=== PATIENT | male | born 1990 | race Caucasian/White ===

== ENCOUNTER 2024-12-28 13:49 | Emergency (ER) | payer OTHER, SELFPAY ==
--- NOTE | ~2024-12-28 | XR_ITS ---
EXAMINATION: XR ankle LT min 3V, 12/28/2024 14:12 UPHOLSTERER LIMOUSINE AND HEARSE HISTORY: Fell off roof COMPARISON: No comparisons available. Findings: There is a comminuted fracture of the calcaneus with fracture lines extending posteriorly superiorly and inferiorly. No significant degenerative changes. Soft tissues unremarkable. Impression: Comminuted calcaneal fracture Reviewed, dictated and finalized at location P. LSTERER LIMOUSINE AND HEARSE Impression: Comminuted calcaneal fracture
--- NOTE | ~2024-12-28 | XR_ITS ---
EXAMINATION: XR heel LT min 2V, 12/28/2024 16:05 WAISTLINE JOINER OVERLOCK HISTORY: fall off ladder COMPARISON: No comparisons available. Findings: Comminuted fracture of the calcaneus with fracture lines extending superiorly posteriorly and inferiorly. No significant degenerative changes. Soft tissue swelling. Impression: Comminuted calcaneal fracture Reviewed, dictated and finalized at location P. TLINE JOINER OVERLOCK Impression: Comminuted calcaneal fracture
--- NOTE | ~2024-12-28 | CT_ITS ---
EXAMINATION: CT ankle LT wo con COMPARISON: None HISTORY: fall TECHNIQUE: Axial images were obtained without IV contrast. Sagittal, coronal reconstruction images were obtained from the axial views. CT scan performed using dose optimization techniques including the following automated exposure control; adjustment of mA and/or kV; use of iterative reconstruction technique. Automatic exposure control was used to reduce radiation dose. Permanent radiation dose record is archived to PACS. FINDINGS: Soft tissue swelling is noted with scattered foci of intramuscular hemorrhage. There is a comminuted fracture of the calcaneus with fracture lines extending posteriorly, superiorly into the talocalcaneal joint anteriorly into the anterior process and inferiorly into the calcaneal cortex. There is a small avulsion fracture noted of the proximal cuboid. No additional fracture or dislocation is identified. IMPRESSION: Comminuted calcaneal fracture detailed above. Small avulsion fracture of the cuboid. Reviewed, dictated and finalized at location P. CE SYSTEM ANALYST IMPRESSION: Comminuted calcaneal fracture detailed above. Small avulsion fractu re of the cuboid.
[2024-12-28 13:52] VITALS: BP 139/101; PULSE 122; RESP 20; TEMP 36.8; O2SAT 100
[2024-12-28] MEDS: HYDROcodone/acetaminophen (*CRX) 5-325 MG TABLET 1 TAB PO (15:05)
--- NOTE | 2024-12-28 15:49 | ED_ITS ---
HPI - General Adult General Chief complaint: Extremity Injury, Lower <KARSTEN Marcelino - Last Filed: 12/29/24 02:34> Stated complaint: fell off roof yesterday <KARSTEN Marcelino - Last Filed: 12/29/24 02:34> Time Seen by Provider: 12/28/24 14:07 <KARSTEN Marcelino - Last Filed: 12/29/24 02:34> History of Present Illness HPI narrative: 34-year-old male presenting with a left ankle injury after falling two stories from a roof yesterday. patient reports he was able to limp to his car afterwards. He could not sleep throughout the night as the pain was too severe. He denies any other injuries. Denies hitting his head, loss of consciousness, numbness /tingling. Left ankle and foot are severely swollen. Neurovascular intact. <KARSTEN Marcelino - Last Filed: 12/29/24 02:34> Related Data Allergies/adverse reactions: Allergies Allergy/AdvReac Type Severity Reaction Status Date / Time No Known Allergies Allergy Mild Verified 12/28/24 13:57 <KARSTEN Marcelino - Last Filed: 12/29/24 02:34> Review of Systems Review of Systems: All systems reviewed & are unremarkable except as noted in HPI and below <KARSTEN Marcelino - Last Filed: 12/29/24 02:34> Exam Narrative: GENERAL: Well-appearing, well-nourished, and in no acute distress. HEAD: Normocephalic, atraumatic. EYES: PERRLA and EOMI. ENT: Nares clear, no rhinorrhea or epistaxis. Mucous membranes moist. Oropharynx without tonsillar hypertrophy exudate or other lesions. Bilateral TMs pearly frias non-bulging NECK: Supple. No adenopathy or masses. No carotid bruits or JVD CHEST: Clear to auscultation. No respiratory distress. No wheezes rales or rhonchi HEART: Tachycardic. Regular rhythm. No murmur heard. Normal peripheral pulses. ABDOMEN: Soft, nontender, nondistended, normal active bowel sounds. EXTREMITIES: Significant diffuse left ankle and foot swelling. No ecchymosis. Neurovascular intact. ROM and strength limited due to pain. SKIN: Warm, dry, no rash. NEURO: No focal deficits. Alert and oriented x3. PSYCH: Normal mood and affect <KARSTEN Marcelino - Last Filed: 12/29/24 02:34> Course Vital Signs Vital signs: Vital Signs Temperature 98.2 F 12/28/24 13:52 Pulse Rate 122 H 12/28/24 13:52 Respiratory Rate 20 12/28/24 13:52 Blood Pressure 139/101 H 12/28/24 13:52 Pulse Oximetry 100 12/28/24 13:52 Oxygen Delivery Room Air 12/28/24 13:52 Temperature 98.2 F 12/28/24 13:52 Pulse Rate 122 H 12/28/24 13:52 Respiratory Rate 20 12/28/24 13:52 Blood Pressure 139/101 H 12/28/24 13:52 Pulse Oximetry 100 12/28/24 13:52 Oxygen Delivery Room Air 12/28/24 13:52 <KARSTEN Marcelino - Last Filed: 12/29/24 02:34> Vital Signs Temperature 98.2 F 12/28/24 13:52 Pulse Rate 122 H 12/28/24 13:52 Respiratory Rate 20 12/28/24 13:52 Blood Pressure 139/101 H 12/28/24 13:52 Pulse Oximetry 100 12/28/24 13:52 Oxygen Delivery Room Air 12/28/24 13:52 Temperature 98.2 F 12/28/24 13:52 Pulse Rate 122 H 12/28/24 13:52 Respiratory Rate 20 12/28/24 13:52 Blood Pressure 139/101 H 12/28/24 13:52 Pulse Oximetry 100 12/28/24 13:52 Oxygen Delivery Room Air 12/28/24 13:52 <Sarika Brown MD - Last Filed: 12/28/24 20:18> Medical Decision Making MDM Narrative Medical decision making narrative: 34-year-old male presenting with a left ankle injury after falling two stories from a roof yesterday. patient reports he was able to limp to his car a fterwards. He could not sleep throughout the night as the pain was too severe. He denies any other injuries. Denies hitting his head, loss of consciousness, numbness /tingling. Left ankle and foot are severely swollen. Neurovascular intact. Upon my initial exam patient is anxious and reports severe pain. Exam shows significant diffuse left ankle and foot swelling. No ecchymosis. Neurovascular intact. ROM and strength limited due to pain. Ankle XR demonstrates comminuted calcaneal fracture. Administered L[place]wood which gave mild relief. Spoke with Dr. Garcia with ortho who advised CT ankle and calcaneal XR. CT ankle demonstrated comminuted calcaneal fracture and a small avulsion fracture of the cuboid. Calcaneal XR demonstrated the same findings. After discussing these results, Dr. Garcia was comfortable with patient discharge in posterior splint and close follow-up outpatient in his office. Patient's pain increased after imaging, administered oxycodone. Patient reported better relief. Splint was placed by the emergency department autocad technician under my supervision. The patient was neurovascularly intact both pre-and post-procedure. Patient discharged home with Larchwood prescription for pain control. All questions were answered to the patient's satisfaction. Patient comfortable with discharge home for outpatient care and follow-up. Given reasons to return. A I was asked to write a prescription of L[place]wood because the nurse practitioner credentials are not sufficient to do that. I did not see the patient I was told that the patient have calcaneal fracture and was accepted for outpatient follow-up by the orthopedic. <KARSTEN Marcelino - Last Filed: 12/29/24 02:34> 34-year-old male presenting with a left ankle injury after falling two stories from a roof yesterday. patient reports he was able to limp to his car afterwards. He could not sleep throughout the night as the pain was too severe. He denies any other injuries. Denies hitting his head, loss of consciousness, numbness /tingling. Left ankle and foot are severely swollen. Neurovascular intact. Upon my initial exam patient is anxious and reports severe pain. Significant diffuse left ankle and foot swelling. No ecchymosis. Neurovascular intact. ROM and strength limited due to pain. Ankle XR demonstrates comminuted calcaneal fracture. Spoke with Dr. Garcia with ortho who advised CT ankle and calcaneal XR... Splint was placed by the emergency department autocad technician under my supervision. The patient was neurovascularly intact both pre-and post-procedure. A I was asked to write a prescription of [place]wood because the nurse practitioner credentials are not sufficient to do that. I did not see the patient I was told that the patient have calcaneal fracture and was accepted for outpatient follow-up by the orthopedic. <Sarika Brown MD - Last Filed: 12/28/24 20:18> Medical Records Medical records reviewed: Yes I reviewed the external patient's medical records. <KARSTEN Marcelino - Last Filed: 12/29/24 02:34> Vital Signs Vital Signs: Vital Signs Temperature 98.2 F 12/28/24 13:52 Pulse Rate 122 H 12/28/24 13:52 Respiratory Rate 20 12/28/24 13:52 Blood Pressure 139/101 H 12/28/24 13:52 Pulse Oximetry 100 12/28/24 13:52 Oxygen Delivery Room Air 12/28/24 13:52 Temperature 98.2 F 12/28/24 13:52 Pulse Rate 122 H 12/28/24 13:52 Respiratory Rate 20 12/28/24 13:52 Blood Pressure 139/101 H 12/28/24 13:52 Pulse Oximetry 100 12/28/24 13:52 Oxygen Delivery Room Air 12/28/24 13:52 <KARSTEN Marcelino - Last Filed: 12/29/24 02:34> Vital Signs Temperature 98.2 F 12/28/24 13:52 Pulse Rate 122 H 12/28/24 13:52 Respiratory Rate 20 12/28/24 13:52 Blood Pressure 139/101 H 12/28/24 13:52 Pulse Oximetry 100 12/28/24 13:52 Oxygen Delivery Room Air 12/28/24 13:52 Temperature 98.2 F 12/28/24 13:52 Pulse Rate 122 H 12/28/24 13:52 Respiratory Rate 20 12/28/24 13:52 Blood Pressure 139/101 H 12/28/24 13:52 Pulse Oximetry 100 12/28/24 13:52 Oxygen Delivery Room Air 12/28/24 13:52 <Sarika Brown MD - Last Filed: 12/28/24 20:18> Imaging Data Attestation: I personally reviewed and interpreted this imaging study as follows: <KARSTEN Marcelino - Last Filed: 12/29/24 02:34> Radiologist's impression: ITS Impressions Ankle X-Ray 12/28/24 14:20 Impression: Comminuted calcaneal fracture Ankle CT 12/28/24 15:48 IMPRESSION: Comminuted calcaneal fracture detailed above. Small avulsion fracture of the cuboid. Heel X-Ray 12/28/24 16:17 Impression: Comminuted calcaneal fracture <KARSTEN Marcelino Last Filed: 12/29/24 02:34> Discharge Plan Discharge Clinical Impression: Closed fracture of heel bone <KARSTEN Marcelino Last Filed: 12/29/24 02:34> Patient Disposition: Home <KARSTEN Marcelino Last Filed: 12/29/24 02:34> Condition: Stable <KARSTEN Marcelino Last Filed: 12/29/24 02:34> Instructions: Calcaneal Fracture (ED) <KARSTEN Marcelino Last Filed: 12/29/24 02:34> Additional Instructions: Nonweightbearing on the affected foot. Use crutches as instructed. Keep splint on as instructed and do not remove unless instructed by your doctor. Keep the dressing dry and clean. Use a plastic bag when showering. Check for signs of tightness or impaired circulation including increasing pain, numbness, tingling, swelling, or blue toes. go to the ER immediately for any of these signs or symptoms. Take pain medications as directed. Elevate the foot above heart level when resting to reduce swelling. Follow up closely with Dr. Garcia's office with orthopedics. <KARSTEN Marcelino Last Filed: 12/29/24 02:34> Patient Language: Citizen Of [place] <KARSTEN Marcelino Last Filed: 12/29/24 02:34> Prescriptions: New hydrocodone-acetaminophen 5-325 mg tablet 1 tablet PO Q4H Qty: 30 0RF <KARSTEN Marcelino Last Filed: 12/29/24 02:34> Follow-up/Referrals: PHYSICIAN,TAPEMAN [Primary Care Provider, Internal Medicine] Kirit Garcia MD [Physician, Orthopedics] <KARSTEN Marcelino - Last Filed: 12/29/24 02:34>
[2024-12-28] MEDS: oxyCODONE HCL (*CRX) 5 MG TAB IR PO (17:00)
--- NOTE | 2024-12-28 18:09 | PC.NURSE ---
Patient states splint was hurting. RN removed fiberglass and replaced splint. Patient states splint feels better. RN educated pt on crutches and splint care.
== END 2024-12-28 18:13 | disposition home or self-care (01) ==
DX: S92.002A Unspecified fracture of left calcaneus, initial encounter for closed fracture (principal); W13.2XXA Fall from, out of or through roof, initial encounter
CPT/HCPCS: 29515; 73610; 73650; 73700; 96360; 99284; A9270